=== PATIENT | male | born 1950 | race Caucasian/White ===

== ENCOUNTER 2017-11-29 18:39 | Emergency (ER) | payer OTHER ==
[~2017-11-29] VITALS: Ht 170.2 cm; Wt 51.7 kg
[~2017-11-29 18:39] MED LIST: ALPRAZOLAM1 M2 PO; AMLODIPINE BESYL5 M1 PO; ASPIRIN EC81 M1 PO; ATORVASTATIN CA10 M1 PO; BUSPIRONE HCL15 M1 PO; CILOSTAZOL100 M1 PO; FLEXERIL10 MG PO; FLUOXETINE HCL10 M2 PO; LOSARTAN POTAS100 M1 PO; METOPROLOL TART50 M1 PO; PERCOCET 5-3251 EACH PO; VICODIN5-300 PO; WARFARIN SODIUM5 M1 PO; ZITHROMAX250 M2 PO
--- NOTE | 2017-11-29 20:53 | ED DYSPNEA/ASTHMA COMPLAINT ---
History of Present Illness General Chief Complaint: Dyspnea (COPD, CHF, Other) Stated Complaint: SOB Source: patient, family, old records Exam Limitations: no limitations Vital Signs & Intake/Output Vital Signs & Intake/Output Vital Signs Date Time Temp Pulse Resp B/P B/P Pulse O2 O2 Flow FiO2 Mean Ox Delivery Rate 11/29 2317 180/104 11/29 2311 97.4 94 22 180/104 95 11/29 1859 180/110 11/29 1846 96.2 103 198/117 ED Intake and Output 11/30 0000 11/29 1200 Intake Total 0 Output Total Balance 0 Intake, Oral 0 Patient 114 lb Weight Weight Reported by Patient Measurement Method Allergies Coded Allergies: No Known Allergies (11/29/17) Reconcile Medications Alprazolam 1 MG TABLET 1 TAB PO DAILY ANXIETY (Reported) Amlodipine Besylate 5 MG TABLET 1 TAB PO DAILY BP (Reported) Aspirin (Ecotrin*) 81 MG TABLET.DR 1 TAB PO DAILY HEART/BLOOD (Reported) Atorvastatin Calcium 10 MG TABLET 1 TAB PO DAILY CHOLESTEROL (Reported) Azithromycin (Zithromax) 250 MG TABLET 1 DP PO AD BRONCHITIS 2 the first day followed by 1 for days 2-5 Buspirone HCl 15 MG TABLET 1 TAB PO BID MENTAL HEALTH (Reported) Cilostazol 100 MG TABLET 1 TAB PO BID BLOOD FLOW TO LEGS (Reported) Fluoxetine HCl 10 MG CAPSULE 1 CAP PO DAILY MENTAL HEALTH (Reported) Losartan Potassium 100 MG TABLET 1 TAB PO DAILY BP (Reported) Metoprolol Tartrate 50 MG TABLET 1 TAB PO BID HEART/BP (Reported) Warfarin Sodium 5 MG TABLET 1 TAB PO DAILY BLOOD THINNER (Reported) Triage Note: PT TO ED FOR C/C OF SUDDEN ONSET OF SOB THAT STARTED WHEN PT WAS SITTING ON COUGH TODAY. PT HAS HAD COUGH OVER LAST 2 WEEKS AND SAW PCP AND GIVEN COUGH MEDICINE. PT NOTED TO BE SLIGHTLY TACHYPNIC IN TRIAGE WITHOUT SIGNIFICANT WORK OF BREATHING NOTED. PT'S O2 SAT WNL. DENIES FEVERS, AFEBRILE IN TRIAGE. DENIES CHEST PAIN. Triage Nurses Notes Reviewed? yes Onset: Gradual Duration: week(s): (2), changing over time, continues in ED Timing: recent history Severity: mild, moderate Prior Episodes/Possible Cause: occasional episodes Associated Symptoms: anxiety, cough, wheezing HPI: 67-year-old male past medical history of hypertension, peripheral vascular disease, hyperlipidemia, COPD, anxiety presents for evaluation of cough and shortness of breath. Patient states that over the past 2 weeks he has had a cough productive of white sputum and shortness of breath. Patient states that he was sitting on a couch earlier today he felt like his symptoms were getting worse. He felt short of breath at rest. It did not get wprse with exertion. He has been using his pro-air inhaler and Symbicort with some improvement. He was seen here several days ago and prescribed Zithromax. He denies any fevers, chest pain, hemoptysis, lower extremity edema, nausea, vomiting, diarrhea or any other associated symptoms. He is a current smoker. (Giancarlo Ríos) Past History Travel History Traveled to [place] past 21 day No Medical History Any Pertinent Medical History? 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 No (Giancarlo Ríos) Review of Systems Review of Systems Constitutional: Reports: no symptoms. EENTM: Reports: no symptoms. Respiratory: Reports: see HPI, cough, short of breath, sputum production, wheezing. Cardiovascular: Reports: no symptoms. GI: Reports: no symptoms. Genitourinary: Reports: no symptoms. Musculoskeletal: Reports: no symptoms. Skin: Reports: no symptoms. Neurological/Psychological: Reports: no symptoms. Hematologic/Endocrine: Reports: no symptoms. Immunologic/Allergic: Reports: no symptoms. All Other Systems: Reviewed and Negative (Giancarlo Ríos) Physical Exam Physical Exam General Appearance: well developed/nourished, no apparent distress, alert, awake Head: atraumatic, normal appearance Eyes: Bilateral: normal appearance, PERRL, EOMI. Ears, Nose, Throat: normal pharynx, normal ENT inspection, hearing grossly normal Neck: normal inspection, supple, full range of motion Respiratory: chest non-tender, quiet respiration, decreased breath sounds, no wheezing rhonchi or rales Cardiovascular: regular rate/rhythm (rate 98), normal peripheral pulses Peripheral Pulses: 2+ radial (R), 2+ radial (L) Gastrointestinal: soft, non-tender Extremities: normal inspection, normal range of motion, no edema Neurologic/Psych: no motor/sensory deficits, awake, alert, oriented x 3, normal gait Skin: intact, normal color, warm/dry Lymphatic: no anterior cervical gris Core Measures ACS in differential dx? No CVA/TIA Diagnosis No Sepsis Present: No Sepsis Focused Exam Completed? No (Giancarlo Ríos) Progress Differential Diagnosis: asthma, AMI, bronchitis, CHF, COPD, pulmonary embolism, pneumonia Plan of Care: Orders Procedure Date/time Status URINALYSIS 11/29 2053 Complete TROPONIN LEVEL 11/29 2053 Complete PARTIAL THROMBOPLASTIN TIME 11/29 2053 Complete PROTHROMBIN TIME 11/29 2053 Complete LACTIC ACID 11/29 2053 Complete D-DIMER 11/29 2053 Complete COMPREHENSIVE METABOLIC PANEL 11/29 2053 Complete CBC WITHOUT DIFFERENTIAL 11/29 2053 Complete B-TYPE NATRIURETIC PEP (BNP) 11/29 2053 Complete EKG 11/29 1840 Active Laboratory Tests 11/29/17 2354: Lactic Acid Cancelled 11/29/17 2158: Urine Color YEL, Urine Clarity CLEAR, Urine pH 6.5, Ur Specific Watson 1.010, Urine Protein NEG, Urine Ketones NEG, Urine Nitrite NEG, Urine Bilirubin NEG, Urine Urobilinogen 0.2, Ur Leukocyte Esterase NEG, Ur Microscopic SEDIMENT EXAMINED, Urine RBC 1-3, Urine Bacteria RARE H, Urine Hemoglobin SMALL H, Urine Glucose NEG 11/29/17 2142: Anion Gap 13, Estimated GFR > 60, BUN/Creatinine Ratio 27.8 H, Glucose 84, Lactic Acid 0.8, Calcium 9.3, Total Bilirubin 0.1 L, AST 24, ALT 34, Alkaline Phosphatase 95, Troponin I < 0.01, Yzi-V-Jkrikeiiuct Pept 179 H, Total Protein 7.2, Albumin 3.8, Globulin 3.4, Albumin/Globulin Ratio 1.1, PT 14.7 H, INR 1.40 H, APTT 34, D-Dimer High Sensitivty 518 H, CBC w Diff NO MAN DIFF REQ, RBC 5.20, MCV 92.7, MCH 31.0, MCHC 33.5, RDW 14.6 H, MPV 8.1, Gran % 61.2, Lymphocytes % 23.6, Monocytes % 10.3 H, Eosinophils % 4.4, Basophils % 0.5, Absolute Granulocytes 6.0, Absolute Lymphocytes 2.3, Absolute Monocytes 1.0 H, Absolute Eosinophils 0.4, Absolute Basophils 0 Patient seen and evaluated. He has diminished breath sounds bilaterally without wheezing rhonchi or rales. He is afebrile and nontoxic-appearing. Blood work shows a mildly elevated d-dimer but CTA of the chest is negative for PE. EKG and troponin are negative and unchanged. Symptoms have been going on for 2 weeks now. There is no chest pain. Patient was ambulated in the emergency department did not desaturate. He is slightly hypertensive but was given his nighttime dose of metoprolol and repeat blood pressure before discharge is 160s over 90s. Patient will be instructed to continue antibiotics for the full course continue pro-air and Symbicort as directed. Make a follow-up with primary care doctor to get pulmonology referral. Discussed return precautions including signs of worsening infection/acute coronary syndrome. Quit smoking. Patient is nontoxic-appearing and agrees the plan. Case discussed with Dr. Rogers he agrees. Diagnostic Imaging: Viewed by Me: Radiology Read. Discussed w/RAD: Radiology Read. Radiology Impression: PATIENT: CHRISTOPHER CANNON PRESENT AGE: 67 PATIENT ACCOUNT NO: [id number] : 49 LOCATION: [facility] ORDERING PHYSICIAN: Giancarlo GOVEA SERVICE DATE: 11/29/17 EXAM TYPE: CAT - CTA CHEST-PULMONARY EMBOLISM EXAMINATION: CTA CHEST PE STUDY CLINICAL INFORMATION: SOB, COUGH COMPARISON: Chest x-ray from this evening as well as the visualized lung bases on the CT of the abdomen and pelvis up to the oldest available 11/22/2010 CT scan. TECHNIQUE: Prior to contrast administration , noncontrast localization images were obtained. After the administration of 95 ml of Optiray 320 IV contrast, contiguous thin slice helical images were obtained through the thorax. Reformatted MIP images in the coronal and sagittal planes were obtained at the acquisition workstation. DLP: 277 mGy-cm. FINDINGS: The bolus timing on this study was acceptable for visualization of the pulmonary arterial tree. There are no intraluminal pulmonary arterial filling defects present to suggest pulmonary embolism. Extensive bullous emphysematous changes are seen bilaterally most marked in the bilateral upper lobes. I do not appreciate any significant focal consolidation superimposed on this extensive bullous emphysematous change. In the posterior medial left lung base there is a 0.8 cm pulmonary nodule which in retrospect was present on the 2016 CT scan as well and not significantly changed since that time although this has slightly increased from 0.4 cm on the oldest available 11/22/2010 CT scan No significant hilar or mediastinal adenopathy. There is no evidence of pleural effusion or pneumothorax. The heart is normal in size. No evidence of ventricular septal bowing or right heart strain. Vascular calcification is seen within the aorta and coronary vessels. There is no pericardial effusion or pericardial thickening. Limited evaluation of the upper abdominal viscera is unremarkable. IMPRESSION: Extensive bullous emphysematous changes bilaterally. I do not appreciate any superimposed consolidation. No evidence for pulmonary emboli. 0.8 cm pulmonary nodule in the medial aspect of the left lower lobe not significantly changed from the 2016 study although this has shown increase in size when compared to the oldest available 11/22/2010 study. Etiology of this nonspecific pulmonary nodule is uncertain with this slow growth pattern. Further evaluation with PET/CT scan or biopsy may be helpful to confirm the etiology further. VTE: Negative DICTATED BY: Darnell Kaur MD DATE/TIME DICTATED:2251 DISHROOM ATTENDANT:JOSELUIS DATE/TIME TRANSCRIBED:11/29/172251 CXR Impression: PATIENT: CHRISTOPHER CANNON PRESENT AGE : 67 PATIENT ACCOUNT NO: [id number] : 49 LOCATION: [facility] ORDERING PHYSICIAN: Giancarlo GOVEA SERVICE DATE: 11/29/17 EXAM TYPE: RAD - XRY- CHEST XRAY, TWO VIEWS EXAMINATION: CHEST 2 VIEWS CLINICAL INFORMATION: Cough, shortness of breath. COMPARISON: 11/26/2015. TECHNIQUE: PA and lateral views of the chest were obtained. FINDINGS: The cardiac silhouette is not enlarged. The mediastinal and hilar contours are unremarkable. There are neither pleural effusions nor pneumothoraces. There are no consolidations. Cavitary lesions are again identified. The lungs are hyperinflated. The osseous structures are unremarkable. IMPRESSION: No evidence for acute disease. COPD. DICTATED BY: Gonzales Michelle MD DATE/TIME DICTATED:11/29/172139 DISHROOM ATTENDANT:JOSELUIS DATE/TIME TRANSCRIBED:11/29/172139 CONFIDENTIAL, DO NOT COPY WITHOUT APPROPRIATE AUTHORIZATION. Initial ED EKG: SINUS TACHYCARDIA, BORDERLINE RIGHT AXIS DEVIATION (Giancarlo Ríos) Departure Departure Disposition: HOME OR SELF CARE Condition: Stable Clinical Impression Primary Impression: Acute bronchitis Qualifiers: Bronchitis organism: unspecified organism Qualified Code: J20.9 - Acute bronchitis, unspecified Referrals: Miesha ACOSTA,Shiva Hopkins (PCP/Family) Additional Instructions: Continue to take antibiotics as directed. Use pro-air inhaler 2 puffs 4-6 hours as needed. Continue Symbicort as directed for the full course. Follow up with YOUr primary care doctor as soon as possible. Monitor symptoms and return with any concerns. Departure Forms: Customer Survey General Discharge Information (Giancarlo Ríos) PA/SKEIN BANDER Co-Sign Statement Statement: ED Attending supervision documentation- [X] I saw and evaluated the patient. I have also reviewed all the pertinent lab results and diagnostic results. I agree with the findings and the plan of care as documented in the PA's/SKEIN BANDER's documentation. [X] I have reviewed the ED Record and agree with the PA's/SKEIN BANDER's documentation. [] Additions or exceptions (if any) to the PAs/SKEIN BANDER's note and plan are summarized below: [] (Sue ACOSTA,Remi Luciano) Critical Care Note Critical Care Note Critical Care Time: non-applicable (Giancarlo Ríos)
--- NOTE | 2017-11-29 21:45 | RADIOLOGY REPORT ---
EXAMINATION: CHEST 2 VIEWS CLINICAL INFORMATION: Cough, shortness of breath. COMPARISON: 11/26/2015. TECHNIQUE: PA and lateral views of the chest were obtained. FINDINGS: The cardiac silhouette is not enlarged. The mediastinal and hilar contours are unremarkable. There are neither pleural effusions nor pneumothoraces. There are no consolidations. Cavitary lesions are again identified. The lungs are hyperinflated. The osseous structures are unremarkable. IMPRESSION: No evidence for acute disease. COPD.
[2017-11-29 21:55] LABS: ABSOLUTE BASOPHIL COUNT 0 /CUMM (0.0-0.2); ABSOLUTE EOSINOPHIL COUNT 0.4 /CUMM (0.0-0.7); ABSOLUTE LYMPH COUNT 2.3 /CUMM (1.2-3.4); BASOPHIL % 0.5 % (0.0-2.0); EOSINOPHIL % 4.4 % (0-5); GRANULOCYTE % 61.2 % (42.2-75.2); HEMATOCRIT 48.1 % (42-52); MEAN CORPUSCULAR HGB CONC 33.5 G/DL (33.0-37.0); MEAN CORPUSCULAR VOLUME 92.7 FL (80.0-94.0); MEAN PLATELET VOLUME 8.1 FL (7.4-10.4); PLATELET COUNT 297 /CUMM (130-400); RBC DISTRIBUTION WIDTH 14.6 % (11.5-14.5); WHITE BLOOD CELL COUNT 9.8 /CUMM (4.8-10.8)
[2017-11-29 22:03] LABS: PT 14.7 SEC (9.4-12.5); PTT 34 SEC (25-37)
--- NOTE | 2017-11-29 23:03 | CT SCAN REPORT ---
EXAMINATION: CTA CHEST PE STUDY CLINICAL INFORMATION: SOB, COUGH COMPARISON: Chest x-ray from this evening as well as the visualized lung bases on the CT of the abdomen and pelvis up to the oldest available 11/22/2010 CT scan. TECHNIQUE: Prior to contrast administration, noncontrast localization images were obtained. After the administration of 95 ml of Optiray 320 IV contrast, contiguous thin slice helical images were obtained through the thorax. Reformatted MIP images in the coronal and sagittal planes were obtained at the acquisition workstation. DLP: 277 mGy-cm. FINDINGS: The bolus timing on this study was acceptable for visualization of the pulmonary arterial tree. There are no intraluminal pulmonary arterial filling defects present to suggest pulmonary embolism. Extensive bullous emphysematous changes are seen bilaterally most marked in the bilateral upper lobes. I do not appreciate any significant focal consolidation superimposed on this extensive bullous emphysematous change. In the posterior medial left lung base there is a 0.8 cm pulmonary nodule which in retrospect was present on the 2015 CT scan as well and not significantly changed since that time although this has slightly increased from 0.4 cm on the oldest available 11/22/2010 CT scan No significant hilar or mediastinal adenopathy. There is no evidence of pleural effusion or pneumothorax. The heart is normal in size. No evidence of ventricular septal bowing or right heart strain. Vascular calcification is seen within the aorta and coronary vessels. There is no pericardial effusion or pericardial thickening. Limited evaluation of the upper abdominal viscera is unremarkable. IMPRESSION: Extensive bullous emphysematous changes bilaterally. I do not appreciate any superimposed consolidation. No evidence for pulmonary emboli. 0.8 cm pulmonary nodule in the medial aspect of the left lower lobe not significantly changed from the 2016 study although this has shown increase in size when compared to the oldest available 11/22/2010 study. Etiology of this nonspecific pulmonary nodule is uncertain with this slow growth pattern. Further evaluation with PET/CT scan or biopsy may be helpful to confirm the etiology further. VTE: Negative
[2017-11-30 00:19] VITALS: BP 160/94
== END 2017-11-30 00:21 ==
LOC: ERH 18:39
PROVIDERS: Physician Assistant Medical
DX: J20.9 Acute bronchitis, unspecified (principal); Z72.0 Tobacco use; I10 Essential (primary) hypertension
CPT/HCPCS: 71046; 81001; 93005; 93010

== ENCOUNTER → 2018-05-15 | Day surgery (SDC) | payer OTHER ==
--- NOTE | 2018-05-15 14:16 | Operative Report ---
Operative/Inv Procedure Report Surgery Date: 05/15/18 Name of Procedure: Cataract extraction with intraocular lens implantation left eye Pre-Operative Diagnosis: Age-related cataract left eye Post-Operative Diagnosis: Same Estimated Blood Loss: none Surgeon/Char Puller: Robinson ACOSTA,Boogie Luciano Anesthesia: local monitored anesthesi Complications: None Operative/Procedure Note Note: Preoperatively the patient was noted to have 20/50 vision in the left eye . The risks, benefits, and alternatives to surgery were discussed at length with the patient. Informed consent was obtained. The patient was brought to the operating room where the left eye was prepped and draped in the normal sterile fashion. A speculum was placed on the left eye with good exposure. A stab incision was made using a paracentesis blade. Intracameral lidocaine was placed. Viscoelastic was used to form the anterior chamber. A clear corneal incision was made using keratome blade. A continuous curvilinear capsulorrhexis was made using a cystotome needle followed by Utrata forceps. There was no extension of the rhexis. Hydrodissection was performed using balanced salt solution. The cataract was removed using a stop and chop technique. Residual cortex was removed using coaxial irrigation and aspiration. The capsule was polished using irrigation and aspiration and the posterior capsule was cleaned using a balanced salt solution jet. There was no residual lens material inside the eye. The capsular bag was reformed using viscoelastic. An intraocular lens [id number] of power 19.0 was verified and confirmed. It was loaded into an injector and injected into the eye. The lens was placed entirely within the capsular bag. Viscoelastic was evacuated using irrigation and aspiration. The wounds were stromally hydrated and the eye filled to physiologic pressure using balanced salt solution. Intracameral cefuroxime was placed. Speculum was removed and a shield was placed on the eye. The patient was brought to the recovery area without incident. Instructions were given to follow-up the next day for routine postoperative care.
== END ==
LOC: STS 01:54
DX: H25.9 Unspecified age-related cataract (principal); I10 Essential (primary) hypertension; N40.0 Benign prostatic hyperplasia without lower urinary tract symptoms; F41.9 Anxiety disorder, unspecified; E78.00 Pure hypercholesterolemia, unspecified; I73.9 Peripheral vascular disease, unspecified; J44.9 Chronic obstructive pulmonary disease, unspecified; Z79.01 Long term (current) use of anticoagulants
CPT/HCPCS: J2250; V2632

== ENCOUNTER → 2018-06-14 | Day surgery (SDC) | payer OTHER ==
--- NOTE | 2018-06-14 09:26 | Operative Report ---
Operative/Inv Procedure Report Surgery Date: 06/14/18 Name of Procedure: Cataract extraction with intraocular lens implantation right eye Pre-Operative Diagnosis: Age-related cataract right eye Post-Operative Diagnosis: Same Estimated Blood Loss: none Surgeon/Rotary Drier Operator: Robinson ACOSTA,Boogie Luciano Anesthesia: local monitored anesthesi Complications: None Operative/Procedure Note Note: Preoperatively the patient was noted to have 20/40 vision in the right eye with a decrease with glare testing down to 20/70. The risks, benefits, and alternatives to surgery were discussed at length with the patient. Informed consent was obtained. The patient was brought to the operating room where the right eye was prepped and draped in the normal sterile fashion. A speculum was placed on the right eye with good exposure. The axis of the limbal relaxing incision was marked. Using a addison blade at 600 depth, an incision spanning 40 degrees was made without complication. A limbal relaxing incision of equal length and depth was made 180 away. A stab incision was made using a paracentesis blade. Intracameral lidocaine was placed. Viscoelastic was used to form the anterior chamber. A clear corneal incision was made using keratome blade. A continuous curvilinear capsulorrhexis was made using a cystotome needle followed by Utrata forceps. There was no extension of the rhexis. Hydrodissection was performed using balanced salt solution. The cataract was removed using a stop and chop technique. Residual cortex was removed using coaxial irrigation and aspiration. The capsule was polished using irrigation and aspiration and the posterior capsule was cleaned using a balanced salt solution jet. There was no residual lens material inside the eye. The capsular bag was reformed using viscoelastic. An intraocular lens PCBOO of power 19.5 was verified and confirmed. It was loaded into an injector and injected into the eye. The lens was placed entirely within the capsular bag. Viscoelastic was evacuated using irrigation and aspiration. The wounds were stromally hydrated and the eye filled to physiologic pressure using balanced salt solution. Intracameral cefuroxime was placed. Speculum was removed and a shield was placed on the eye. The patient was brought to the recovery area without incident. Instructions were given to follow-up the next day for routine postoperative care.
== END ==
LOC: STS 04:20
DX: H25.9 Unspecified age-related cataract (principal); I10 Essential (primary) hypertension; J44.9 Chronic obstructive pulmonary disease, unspecified; F17.200 Nicotine dependence, unspecified, uncomplicated; Z79.01 Long term (current) use of anticoagulants; N28.9 Disorder of kidney and ureter, unspecified
CPT/HCPCS: J2250; V2632